=== PATIENT | male | born 1955 | race African-American/Black ===

== ENCOUNTER 2017-02-22 15:37 | Inpatient (IN) | payer OTHER ==
--- NOTE | ~2017-02-22 | DS ---
Discharge Summary [id number] [place]. [address] NAME: JORDAN LIN : 51 STATUS : DIS IN PAT#: [id number] AGE: 61 ADM/REG DATE : 02/22/17 MR#: [id number] REPORT SERV DATE: 02/27/17 DICTATED BY: CARLO CALLES DATE: 02/27/17 REPORT STATUS : Draft TRANSCRIBED BY: MODL DATE: 02/27/17 ADMISSION DATE: 02/22/2017 DISCHARGE DATE: 02/27/2017 DISCHARGE DIAGNOSES: 1. Anaplastic large T-cell lymphoma, as a new diagnosis after biopsy of right groin mass. 2. Leukocytosis, without any active evidence for infection. 3. Mild acute kidney injury on chronic kidney disease, present on admission, resolved. 4. Obesity. 5. Chronic obstructive pulmonary disease with mild exacerbation. CONSULTANTS: 1. Dr. Sims of Medical Oncology. 2. Dr. Drake of General Surgery. PROCEDURES: CT-guided biopsy of the right inguinal rickey mass that showed anaplastic large T cell lymphoma. HOSPITAL COURSE: This is a 61-year-old gentleman who was admitted to the hospital with a right groin abscess. For details, please refer to excellent H and P by Dr. Eliz Peters. In summary, the patient was admitted with an initial diagnosis of right groin abscess and was started on broad-spectrum antibiotics. However, further imaging showed that it was actually more of a mass than an abscess. The patient subsequently underwent a CT- guided needle biopsy of the mass which showed a large T-cell lymphoma. Thus the patient was seen and evaluated by Dr. Sims of Medical Oncology and the plan is to start chemotherapy as early as next week. The patient will be set up for outpatient PET scan and the patient will also have a port placement as an outpatient. The patient did have a persistent leukocytosis with borderline procalcitonin levels. The patient was maintained on broad-spectrum antibiotics. However, after no further evidence of sepsis or source of infection was identified, the antibiotics were discontinued and the patient remained stable. CT of the abdomen and pelvis was performed, which did not reveal any focal source of infection or any other obvious metastatic disease. Urinalysis was also negative for UTI. On the day of discharge, the patient is getting an echocardiogram since the patient will be started on chemotherapy next week. Results of the echocardiogram will be followed up by Dr. Sims. Otherwise, the patient was also treated for possible mild COPD exacerbation and he remained stable. DISPOSITION: Home. DISCHARGE MEDICATIONS: No changes. FOLLOWUP: 1. Please follow up with PCP in the next one to two weeks. 2. Please follow up with Dr. Sims next week as instructed. 3. Please follow up with General Surgery as instructed for outpatient port placement. Discharge Summary [address] [address] NAME: JORDAN LIN : 51 STATUS : DIS IN PAT#: [id number] AGE: 61 ADM/REG DATE : 02/22/17 MR#: [id number] REPORT SERV DATE: 02/27/17 DICTATED BY: CARLO CALLES DATE: 02/27/17 REPORT STATUS : Draft TRANSCRIBED BY: JAKI DATE: 02/27/17 A total of 40 minutes spent in coordinating this patient's discharge today. DICTATED BY: Carlo Calles MD [facility]/JAKI Carlo Calles MD / [id number] CC: MD RY Brown CONTRESIA
--- NOTE | ~2017-02-22 | CN ---
Consultation Report [facility] [address] [place]. [address] NAME: JORDAN LIN : 51 STATUS : ADM IN PAT#: [id number] AGE: 61 ADM/REG DATE : 02/22/17 MR#: [id number] REPORT SERV DATE: 02/24/17 DICTATED BY: JOJO DRAKE DATE: 02/22/17 REPORT STATUS : Draft TRANSCRIBED BY: MODL DATE: 02/22/17 CONSULT NOTE DATE OF CONSULTATION: 02/22/2017 ATTENDING SURGEON: Jojo Drake M.D. REASON FOR CONSULT: Right groin mass. HISTORY OF PRESENT ILLNESS: This is a 61-year-old male with a history of COPD and hypertension, who presents to the emergency department with one week of an enlarging right groin mass. The patient states that the mass began as a small lump in his groin approximately one week prior. It has been slowly growing in size as well as having increasing pain which is why he presented to the emergency room. Denies any preceding events, although he does note he has been somewhat constipated lately. Denies any fever, chills, nausea, vomiting, or diarrhea. Denies any dysuria or neutral urinating, although he does have some baseline difficulty starting and stopping his urination stream. Denies any change to his home oxygen requirements or new shortness of breath or chest pain. Denies any recent weight loss or night sweats. Denies any prior history of similar masses or any other lesions that he has noted on his body. Denies any history of trauma or manipulation of the right groin. PAST MEDICAL HISTORY: Hypertension, COPD. SURGICAL HISTORY: None. SOCIAL HISTORY: Prior smoker. Minimal alcohol use. Does endorse marijuana use. ALLERGIES: NO KNOWN DRUG ALLERGIES. HOME MEDICATIONS: Lisinopril, DuoNeb inhaler, cholecalciferol, Symbicort inhaler, and hydrochlorothiazide. FAMILY HISTORY: Coronary artery disease, diabetes, COPD, and ovarian cancer in his mother. REVIEW OF SYSTEMS: Pertinent positives and negatives as above per the HPI. The patient denies any history of diabetes or troubles with his sugar control. The patient has never had a colonoscopy. The patient denies any known history of chronic infections including hepatitis and HIV. Full 12 point systems were reviewed and otherwise no pertinent findings. PHYSICAL EXAMINATION: VITAL SIGNS: Temperature 98.1, blood pressure 115/65, heart rate 105, respirations 20, breathing 93% on 2 L by nasal cannula. GENERAL: This is an adult black male, in no acute distress. He is nontoxic appearing. He Consultation Report [address] [place]. [address] NAME: JORDAN LIN : 51 STATUS : ADM IN [facility]#: [id number] AGE: 61 ADM/REG DATE : 02/22/17 MR#: [id number] REPORT SERV DATE: 02/24/17 DICTATED BY: JOJO DRAKE DATE: 02/22/17 REPORT STATUS : Draft TRANSCRIBED BY: MODL DATE: 02/22/17 is alert and oriented x3. CARDIOVASCULAR: Regular rate and rhythm. Distant heart sounds. PULMONARY: Clear to auscultation bilaterally. ABDOMINAL: The abdomen is obese, soft, nondistended, nontender. EXTREMITIES: The patient moves all extremities with equal strength and mobility. Has no noted lesions on the distal lower extremities. With regard to his right groin, the patient has an approximately 4 x 3 cm area of induration at the right inguinal crease. It is tender. Has some slight erythema. No noted fluctuance or active drainage. Inguinal canal on exam does not appear to have any defects or hernias. No hernias or masses noted in the left groin. No other notable lymphadenopathy on exam including the axilla, bilateral neck, and bilateral clavicular areas. LABORATORIES: White count 16, hematocrit 45, platelets 284. Renal panel significant for creatinine of 1.51, glucose of 132. IMAGING: None. ASSESSMENT AND PLAN: This is a 61-year-old male with a history of chronic obstructive pulmonary disease and hypertension with right groin mass. 1. Differential includes cellulitis versus abscess versus lymphadenopathy versus vascular malformation. 2. The patient is currently stable, nontoxic, does have a leukocytosis. We will obtain formal ultrasound of bilateral groins. Pending results of this, the patient may need aspiration versus incision and drainage versus excision of this area. 3. Hospitalist plan is to admit for history of COPD, hypertension with ongoing fluid resuscitation. Recommend holding antibiotics until potential cultures obtained if possible. 4. We will follow along. Marked the external area of induration and erythema to track progress. DICTATED BY: MD KARINA Velásquez/MODL Jojo Drake M.D. / [id number] CC: Jia Koroma Contresia
--- NOTE | ~2017-02-22 | CN ---
Consultation Report [facility] [address] [place]. [address] NAME: JORDAN LIN : 51 STATUS : ADM IN PAT#: [id number] AGE: 61 ADM/REG DATE : 02/22/17 MR#: [id number] REPORT SERV DATE: 02/25/17 DICTATED BY: RAMU GALAVIZ III DATE: 02/25/17 REPORT STATUS : Draft TRANSCRIBED BY: MODTorey DATE: 02/25/17 CONSULTATION DATE OF CONSULTATION: 02/25/2017 REASON FOR CONSULTATION: Right inguinal mass. HISTORY OF PRESENT ILLNESS: Mr. Lin is a 61-year-old man, who presented to the hospital with around one week of pain in his right groin with associated mass. He states that this enlarged over the weekend, but it has been present for roughly one week. He says it is exquisitely tender to touch. He has not noted any recent night fevers or weight loss. He does have intermittent night sweats. He is otherwise fairly healthy with only asthma/COPD as his main medical problem. He also takes hypertension medications. SOCIAL HISTORY: Positive for a prior smoking which he stopped roughly one year ago. There is no alcohol or drug abuse. FAMILY HISTORY: Significant for mother, who of ovarian cancer in her 70s. HOME MEDICATIONS: His home med list was reviewed and per the home med list on the chart. REVIEW OF SYSTEMS: A comprehensive review of systems was performed and is negative unless noted in the HPI. PHYSICAL EXAMINATION: VITAL SIGNS: Blood pressure is 103/58, temperature is 97.8, and pulse is 91. GENERAL: He is well-developed, overweight male, in no acute distress. EYES: Pupils are round and reactive to light. Extraocular muscles are intact. There are anicteric sclerae. NECK: Supple with no masses or thyroid enlargement. No JVD. CARDIOVASCULAR: Regular rate and rhythm with no audible murmurs. EXTREMITIES: There is no lower extremity edema. LUNGS: Clear to auscultation bilaterally with normal respiratory effort. ABDOMEN: Soft, nondistended, and nontender with positive bowel sounds. No hepatosplenomegaly. SKIN: Warm and dry with good skin turgor. Normal color. PSYCH: He is alert, oriented, and comprehends our conversation with normal judgment and affect. LYMPHATIC: Exam is negative for any cervical, supraclavicular, infraclavicular, or axillary lymphadenopathy. There is a right inguinal mass noted with some surrounding induration. DIAGNOSTIC DATA: His CT imaging was reviewed, there is no other lymph nodes noted in his pelvis other than that in his right inguinal region. Consultation Report [place] [address] [address] [place]. [address] NAME: JORDAN LIN : 51 STATUS : ADM IN PAT#: [id number] AGE: 61 ADM/REG DATE : 02/22/17 MR#: [id number] REPORT SERV DATE: 02/25/17 DICTATED BY: RAMU GALAVIZ III DATE: 02/25/17 REPORT STATUS : Draft TRANSCRIBED BY: JAKI DATE: 02/25/17 LABORATORY DATA: His chemistry and CBC were reviewed. ASSESSMENT AND PLAN: Right inguinal mass, biopsy was performed yesterday, it is currently pending. We will obtain a CT scan of his chest and his abdomen. We will also check an LDH. I will follow while he is an inpatient and arrange followup upon discharge. [facility]MA/JAKI Ramu Galaviz III, M.D. / [id number] CC: Jia Koroma CONTRESIA
--- NOTE | ~2017-02-22 | HP ---
History And Physical [place] [address] [facility] [place]. [address] NAME: JORDAN LIN : 51 STATUS : REG ER PAT#: [id number] AGE: 61 ADM/REG DATE : 02/22/17 MR#: [id number] REPORT SERV DATE: 02/22/17 DICTATED BY: KALEN GUEVARA DATE: 02/22/17 REPORT STATUS : Draft TRANSCRIBED BY: MODL DATE: 02/22/17 DATE OF ADMISSION: 02/22/2017 The patient is a 61-year-old male, who presented to [facility] with a complaint of pain in his right groin approximately for one week duration. No fever. No rash. No headache. He said the pain was difficult to tolerate and it was swollen and warm to touch. So, he presented to [facility] for this reason. The patient also has COPD which is oxygen dependent, but he says that he sometimes has shortness of breath on exertion but right now, he denies any shortness of breath. He also has history of hypertension. He denies any history of heart attacks. No history of strokes. No history of diabetes. Kyree Cox, nurse practitioner did a bedside ultrasound. He tried to drain the swelling which looked like an abscess, but it was unsuccessful, so Surgery was called to evaluate this. Family history is known for hypertension and diabetes. No any surgery in the past. SOCIAL HISTORY: He quit smoking one year ago, used to smoke one pack per day. No excessive alcohol use. He uses marijuana. No other recreational drugs. He also has oxygen-dependent COPD as I dictated above. HOME MEDICATIONS: Include albuterol with ipratropium nebulized four times a day, Symbicort two puffs inhaled twice a day, vitamin D 4000 units daily, HCTZ 25 mg a day, and lisinopril 20 mg a day. The patient denies any use of nonsteroidal antiinflammatories. REVIEW OF SYSTEMS: All 14-point review of system done and negative except what is stated in the history of present illness. PHYSICAL EXAMINATION: GENERAL: Obese male, not in acute distress, resting quietly. VITAL SIGNS: Blood pressure 115/65, temperature 98.1, heart rate in 90-100s, respiratory rate 20, oxygen saturation 93% on 2 L nasal cannula. HEENT: Head is atraumatic, normocephalic. Conjunctivae clear. Pupils are equal and reactive to light and accommodation. Extraocular muscles are intact. NECK: Supple. Trachea is midline. No supraclavicular or cervical lymphadenopathy. LUNGS: Diminished breath sounds bilaterally with mild expiratory wheezing anteriorly and posteriorly. Normal respiratory effort. CARDIOVASCULAR: Regular rate and rhythm. Point of maximal impulse not displaced. ABDOMEN: Soft, obese, nontender, nondistended. Positive normoactive bowel sounds. There is a right groin swelling in two places and it is also warm to touch with mild erythema. The left groin looks normal. EXTREMITIES: No clubbing, cyanosis, or edema. Skin normal color and turgor. PSYCHIATRIC: Normal mood and affect. NEUROLOGIC: Awake, alert, and oriented in time, place, and person. Muscle strength is 5/5 History And Physical [address] [address] NAME: JORDAN LIN : 51 STATUS : REG ER PAT#: [id number] AGE: 61 ADM/REG DATE : 02/22/17 MR#: [id number] REPORT SERV DATE: 02/22/17 DICTATED BY: KALEN GUEVARA DATE: 02/22/17 REPORT STATUS : Draft TRANSCRIBED BY: JAKI DATE: 02/22/17 bilaterally on upper and lower extremities. LABORATORY RESULTS: Sodium 136, potassium 4.1, chloride 95, carbon dioxide 43, BUN 19, creatinine 1.51, blood sugar 132, calcium 9.4. According to our records in the computer in 2013, his creatinine was 0.8. White count 75598, hemoglobin 14.1, hematocrit 45.5, platelet count 284. There are 73% segments. ASSESSMENT AND PLAN: This is a 61-year-old male with a past medical history of oxygen- dependent COPD, history of hypertension, presented with, 1. Right groin abscess with pain. 2. Leukocytosis secondary to right groin abscess. 3. Mild acute kidney injury on chronic kidney disease. 4. Obesity. 5. History of chronic obstructive pulmonary disease oxygen dependent, with possible mild exacerbation. Plan for his right groin abscess, blood cultures will be done as well as ultrasound of the groin will be ordered by me. Antibiotics Zosyn and vancomycin started. Surgeon was consulted, Dr. Drake and his resident at the bed side already saw the patient. They are going to discuss with Dr. Drake on further imaging and also on further plan of treatment. Mild acute kidney injury on chronic kidney disease could be just dehydration. We will hold his HCTZ and lisinopril. Gentle IV fluid hydration will be started and we will recheck his creatinine tomorrow. History of oxygen-dependent COPD with mild wheezing. We will give him nebulized breathing treatment with albuterol, ipratropium, as well as we will give him his inhaler Symbicort and we will check his chest x-ray. We will check his EKG and we will check his heart enzymes. The patient does not have any chest pain. We just checked the baseline EKG as well. Reasonable pain control will be given and ultrasound on the groin my partner will check tomorrow. Everything was discussed with the patient, with his family as well as with the surgery resident. MG/JAKI Kalen Guevara M.D. / [id number] CC: History And Physical [address] [address] NAME: JORDAN LIN : 51 STATUS : REG ER PAT#: [id number] AGE: 61 ADM/REG DATE : 02/22/17 MR#: [id number] REPORT SERV DATE: 02/22/17 DICTATED BY: KALEN GUEVARA DATE: 02/22/17 REPORT STATUS : Draft TRANSCRIBED BY: MODL DATE: 02/22/17 Jaret Hawkins
[2017-02-22 16:27] LABS: CALCIUM, SERUM 9.4 MG/DL (8.5-10.4); CHLORIDE, SERUM 95 MMOL/L (96-112); POTASSIUM, SERUM 4.1 MMOL/L (3.5-5.3); SODIUM, SERUM 136 MMOL/L (135-148)
[2017-02-22 16:28] LABS: BUN (BLOOD UREA NITROGEN) 19 MG/DL (6-23); CO2 (CARBON DIOXIDE) 43 MMOL/L (24-34); CREATININE 1.51 MG/DL (0.70-1.30); GFR AFRICAN AMERICAN 56 ML/MIN (>=60); GFR NON AFRICAN AMERICAN 48 ML/MIN (>=60); GLUCOSE, SERUM 132 MG/DL (60-99)
[2017-02-22 16:58] LABS: BASOPHILS 0.1 %; BASOPHILS ABSOLUTE 0.02 10/3/uL (0.0-0.16); EOSINOPHILS ABSOLUTE 0.16 10/3/uL (0.0-0.53); HEMOGLOBIN 14.1 g/dL (13.6-17.8); IMMATURE GRANULOCYTES 0.4 %; IMMATURE GRANULOCYTES ABSOLUTE 0.06 10/3/uL (0.0-0.11); LYMPHOCYTES 22.3 %; LYMPHOCYTES ABSOLUTE 3.57 10/3/uL (0.67-4.30); MEAN CORPUSCULAR HEMOGLOB 26.7 pg (26.0-34.0); MEAN PLATELET VOLUME 10.2 fL (9.2-13.0); MONOCYTES 11.5 %; MONOCYTES ABSOLUTE 1.84 10/3/uL (0.21-1.20); NEUTROPHILS 64.7 %; NEUTROPHILS ABSOLUTE 10.33 10/3/uL (2.02-8.40); RBC DISTRIBUTION WIDTH 17.8 % (12.0-16.0); RED CELL COUNT 5.29 10/6/uL (4.7-6.1)
[2017-02-22 16:59] LABS: ER CBC TAT 0 Hrs 50 Mins; HEMATOCRIT 45.5 % (40.0-51.0); PLATELET COUNT 284 10/3/uL (150-400)
[2017-02-22 17:29] LABS: SEGMENTED NEUTROPHIL (0) 73 %; TOTAL NUCLEATED CELLS 100
[2017-02-22 17:30] LABS: EOSINOPHILS 1 %; EOSINOPHILS ABSOLUTE (CALC) 0.16 10/3/uL (0.0-0.53); LYMPHOCYTES 10 %; MONOCYTES 16 %; MONOCYTES ABSOLUTE (CALC) 2.56 10/3/uL (0.21-1.20); NEUTROPHILS ABSOLUTE (CALC) 11.68 10/3/uL (2.02-8.40)
[2017-02-22 17:32] LABS: ANISOCYTOSIS 1+ (5-10/OIF) (0-5/OIF); ATYPICAL LYMPH FEW (3-5%) (0-5%)
[2017-02-22 17:33] LABS: POLYCHROMASIA 1+ (2-5/OIF) (0-1/OIF); TOXIC GRANULATION SLT
[2017-02-22 17:58] LABS: MANUAL DIFF NO %
[2017-02-22] MEDS ORDERED: SYMBICORT 160/41 INH INH (18:12)
[2017-02-22] MEDS ORDERED: VITAMIN D31000 UNIT PO (18:12)
[2017-02-22] MEDS ORDERED: PRIN20 PO (18:12)
[2017-02-22] MEDS ORDERED: DUONEB INH (18:12)
[2017-02-22] MEDS ORDERED: HYDROCHLOROT25 MG PO (18:13)
[2017-02-22 22:01] LABS: B NATRIURETIC PEPTIDE (BNP) 31.1 PG/ML (< 100.0)
[2017-02-22 22:06] LABS: ULTRASENSITIVE TSH 0.582 MCIU/ML (0.358-3.740)
[2017-02-22 22:25] LABS: PROCALCITONIN 0.5 ng/mL (<0.5)
[2017-02-23 07:05] LABS: HEMATOCRIT 41.5 % (40.0-51.0); HEMOGLOBIN 13.1 g/dL (13.6-17.8); MEAN CORPUS HGB CONC 31.6 g/dL (32.0-36.0); MEAN CORPUSCULAR HEMOGLOB 26.5 pg (26.0-34.0); MEAN CORPUSCULAR VOLUME 83.8 fL (80-100); MEAN PLATELET VOLUME 9.9 fL (9.2-13.0); PLATELET COUNT 272 10/3/uL (150-400); RBC DISTRIBUTION WIDTH 17.6 % (12.0-16.0); RED CELL COUNT 4.95 10/6/uL (4.7-6.1); WHITE BLOOD CELLS 15.4 10/3/uL (4.5-10.5)
[2017-02-23 07:08] LABS: BUN (BLOOD UREA NITROGEN) 20 MG/DL (6-23); CALCIUM, SERUM 8.7 MG/DL (8.5-10.4); CHLORIDE, SERUM 100 MMOL/L (96-112); CREATININE 1.07 MG/DL (0.70-1.30); GFR AFRICAN AMERICAN 85 ML/MIN (>=60); GFR NON AFRICAN AMERICAN 73 ML/MIN (>=60); GLUCOSE, SERUM 119 MG/DL (60-99); MANUAL DIFF YES %; POTASSIUM, SERUM 4.5 MMOL/L (3.5-5.3); SODIUM, SERUM 142 MMOL/L (135-148); TROPONIN I <0.02 NG/ML (<0.05)
[2017-02-23 07:09] LABS: CO2 (CARBON DIOXIDE) 37 MMOL/L (24-34)
[2017-02-23 07:14] LABS: GLYCOHEMOGLOBIN (HbA1c) 5.9 % (4.7-6.1)
[2017-02-23 07:42] LABS: ANISOCYTOSIS 1+ (5-10/OIF) (0-5/OIF); BAND NEUTROPHILS 4 %; EOSINOPHILS 3 %; EOSINOPHILS ABSOLUTE (CALC) 0.46 10/3/uL (0.0-0.53); LYMPHOCYTES 29 %; LYMPHOCYTES ABSOLUTE (CALC) 4.47 10/3/uL (0.67-4.30); MONOCYTES 10 %; MONOCYTES ABSOLUTE (CALC) 1.54 10/3/uL (0.21-1.20); NEUTROPHILS ABSOLUTE (CALC) 8.93 10/3/uL (2.02-8.40); SEGMENTED NEUTROPHIL (0) 54 %; TOTAL NUCLEATED CELLS 100
[2017-02-23 07:43] LABS: HYPOCHROMIA 1+ (3-10/OIF) (0-2/OIF); PLATELET ESTIMATE ADQ (ADEQUATE); POLYCHROMASIA 1+ (2-5/OIF) (0-1/OIF); TARGET CELLS OCC (1-2/OIF) (0-1/OIF); TEARDROP SHAPED RBCS OCC (0-2/OIF)
[2017-02-23 07:44] LABS: HELMET CELLS OCC (0-2/OIF)
[2017-02-23 07:47] LABS: TOXIC GRANULATION SLT
[2017-02-24 05:37] LABS: HEMATOCRIT 41.6 % (40.0-51.0); HEMOGLOBIN 12.9 g/dL (13.6-17.8); MEAN CORPUSCULAR HEMOGLOB 26.3 pg (26.0-34.0); MEAN CORPUSCULAR VOLUME 84.9 fL (80-100); MEAN PLATELET VOLUME 9.8 fL (9.2-13.0); PLATELET COUNT 300 10/3/uL (150-400); RBC DISTRIBUTION WIDTH 17.6 % (12.0-16.0); WHITE BLOOD CELLS 14.5 10/3/uL (4.5-10.5)
[2017-02-24 05:40] LABS: MANUAL DIFF YES %
[2017-02-24 05:52] LABS: CALCIUM, SERUM 8.9 MG/DL (8.5-10.4); CHLORIDE, SERUM 101 MMOL/L (96-112); CO2 (CARBON DIOXIDE) 36 MMOL/L (24-34); CREATININE 0.94 MG/DL (0.70-1.30); GFR AFRICAN AMERICAN 100 ML/MIN (>=60); GFR NON AFRICAN AMERICAN 86 ML/MIN (>=60); GLUCOSE, SERUM 104 MG/DL (60-99); POTASSIUM, SERUM 4.1 MMOL/L (3.5-5.3); SODIUM, SERUM 138 MMOL/L (135-148)
[2017-02-24 05:53] LABS: BUN (BLOOD UREA NITROGEN) 15 MG/DL (6-23)
[2017-02-24 06:19] LABS: ANISOCYTOSIS 1+ (5-10/OIF) (0-5/OIF); BAND NEUTROPHILS 6 %; HYPOCHROMIA 1+ (3-10/OIF) (0-2/OIF); LYMPHOCYTES 12 %; LYMPHOCYTES ABSOLUTE (CALC) 1.74 10/3/uL (0.67-4.30); MONOCYTES 13 %; MONOCYTES ABSOLUTE (CALC) 1.89 10/3/uL (0.21-1.20); NEUTROPHILS ABSOLUTE (CALC) 10.88 10/3/uL (2.02-8.40); PLATELET ESTIMATE ADQ (ADEQUATE); POLYCHROMASIA 1+ (2-5/OIF) (0-1/OIF); SEGMENTED NEUTROPHIL (0) 69 %; TARGET CELLS FEW (3-10/OIF) (0-1/OIF); TOTAL NUCLEATED CELLS 100
[2017-02-25 05:57] LABS: A/G RATIO 0.7 (0.7-1.9); ALBUMIN 2.6 G/DL (3.5-5.0); ALKALINE PHOSPHATASE 49 U/L (45-117); BUN (BLOOD UREA NITROGEN) 14 MG/DL (6-23); CALCIUM, SERUM 8.4 MG/DL (8.5-10.4); CHLORIDE, SERUM 100 MMOL/L (96-112); CO2 (CARBON DIOXIDE) 36 MMOL/L (24-34); CREATININE 0.96 MG/DL (0.70-1.30); GFR AFRICAN AMERICAN 97 ML/MIN (>=60); GFR NON AFRICAN AMERICAN 84 ML/MIN (>=60); GLOBULIN 3.9 G/DL (2.5-4.1); GLUCOSE, SERUM 101 MG/DL (60-99); POTASSIUM, SERUM 4.1 MMOL/L (3.5-5.3); SGOT(AST) 11 U/L (5-40); SGPT(ALT) 13 U/L (5-65); SODIUM, SERUM 140 MMOL/L (135-148); TOTAL BILIRUBIN 0.6 MG/DL (0-1.2); TOTAL PROTEIN 6.5 G/DL (6.0-8.5)
[2017-02-25 06:25] LABS: HEMATOCRIT 40.2 % (40.0-51.0); HEMOGLOBIN 12.6 g/dL (13.6-17.8); MEAN CORPUS HGB CONC 31.3 g/dL (32.0-36.0); MEAN CORPUSCULAR HEMOGLOB 26.5 pg (26.0-34.0); MEAN CORPUSCULAR VOLUME 84.5 fL (80-100); PLATELET COUNT 291 10/3/uL (150-400); RBC DISTRIBUTION WIDTH 17.5 % (12.0-16.0); RED CELL COUNT 4.76 10/6/uL (4.7-6.1); WHITE BLOOD CELLS 14.8 10/3/uL (4.5-10.5)
[2017-02-25 06:26] LABS: MANUAL DIFF YES %
[2017-02-25 06:47] LABS: HYPOCHROMIA 1+ (3-10/OIF) (0-2/OIF); LYMPHOCYTES 28 %; LYMPHOCYTES ABSOLUTE (CALC) 4.14 10/3/uL (0.67-4.30); MONOCYTES 11 %; MONOCYTES ABSOLUTE (CALC) 1.63 10/3/uL (0.21-1.20); NEUTROPHILS ABSOLUTE (CALC) 9.03 10/3/uL (2.02-8.40); SEGMENTED NEUTROPHIL (0) 61 %; TOTAL NUCLEATED CELLS 100
[2017-02-25 06:48] LABS: TARGET CELLS OCC (1-2/OIF) (0-1/OIF)
[2017-02-25 07:10] LABS: PROCALCITONIN 0.57 ng/mL (<0.5)
[2017-02-26 05:14] LABS: HEMATOCRIT 40.4 % (40.0-51.0); HEMOGLOBIN 12.6 g/dL (13.6-17.8); MEAN CORPUS HGB CONC 31.2 g/dL (32.0-36.0); MEAN CORPUSCULAR HEMOGLOB 26.7 pg (26.0-34.0); MEAN CORPUSCULAR VOLUME 85.6 fL (80-100); MEAN PLATELET VOLUME 9.9 fL (9.2-13.0); PLATELET COUNT 285 10/3/uL (150-400); RBC DISTRIBUTION WIDTH 17.4 % (12.0-16.0); RED CELL COUNT 4.72 10/6/uL (4.7-6.1); WHITE BLOOD CELLS 15.8 10/3/uL (4.5-10.5)
[2017-02-26 05:18] LABS: MANUAL DIFF YES %
[2017-02-26 05:23] LABS: BUN (BLOOD UREA NITROGEN) 11 MG/DL (6-23); CALCIUM, SERUM 8.5 MG/DL (8.5-10.4); CHLORIDE, SERUM 100 MMOL/L (96-112); CO2 (CARBON DIOXIDE) 35 MMOL/L (24-34); CREATININE 0.91 MG/DL (0.70-1.30); GFR AFRICAN AMERICAN 104 ML/MIN (>=60); GFR NON AFRICAN AMERICAN 89 ML/MIN (>=60); GLUCOSE, SERUM 104 MG/DL (60-99); POTASSIUM, SERUM 4.3 MMOL/L (3.5-5.3); SODIUM, SERUM 138 MMOL/L (135-148)
[2017-02-26 05:43] LABS: ANISOCYTOSIS 1+ (5-10/OIF) (0-5/OIF); BAND NEUTROPHILS 1 %; EOSINOPHILS 8 %; EOSINOPHILS ABSOLUTE (CALC) 1.26 10/3/uL (0.0-0.53); LYMPHOCYTES 19 %; MONOCYTES 6 %; MONOCYTES ABSOLUTE (CALC) 0.95 10/3/uL (0.21-1.20); NEUTROPHILS ABSOLUTE (CALC) 10.59 10/3/uL (2.02-8.40); PLATELET ESTIMATE ADQ (ADEQUATE); SEGMENTED NEUTROPHIL (0) 66 %; TOTAL NUCLEATED CELLS 100
[2017-02-26 18:48] LABS: ASCORBIC ACID (UR NOT ORDER) NEG (NEG); BILIRUBIN, URINE NEGATIVE (NEG); KETONE, URINE NEGATIVE (NEG); LEUKOCYTE ESTERASE(NOT OR NEG (NEG); WBC (NOT ORDERED) (RFLEX) 1 (0-5)
[2017-02-27 03:24] LABS: HEMATOCRIT 41.2 % (40.0-51.0); HEMOGLOBIN 12.9 g/dL (13.6-17.8); MEAN CORPUS HGB CONC 31.3 g/dL (32.0-36.0); MEAN CORPUSCULAR HEMOGLOB 26.7 pg (26.0-34.0); MEAN CORPUSCULAR VOLUME 85.1 fL (80-100); MEAN PLATELET VOLUME 9.8 fL (9.2-13.0); PLATELET COUNT 300 10/3/uL (150-400); RBC DISTRIBUTION WIDTH 17.1 % (12.0-16.0); RED CELL COUNT 4.84 10/6/uL (4.7-6.1); WHITE BLOOD CELLS 16.5 10/3/uL (4.5-10.5)
[2017-02-27 03:29] LABS: MANUAL DIFF YES %
[2017-02-27 03:37] LABS: BUN (BLOOD UREA NITROGEN) 12 MG/DL (6-23); CALCIUM, SERUM 8.7 MG/DL (8.5-10.4); CHLORIDE, SERUM 99 MMOL/L (96-112); CO2 (CARBON DIOXIDE) 38 MMOL/L (24-34); CREATININE 1.11 MG/DL (0.70-1.30); GFR AFRICAN AMERICAN 81 ML/MIN (>=60); GFR NON AFRICAN AMERICAN 70 ML/MIN (>=60); GLUCOSE, SERUM 106 MG/DL (60-99); POTASSIUM, SERUM 4.1 MMOL/L (3.5-5.3); SODIUM, SERUM 139 MMOL/L (135-148)
[2017-02-27 03:54] LABS: ANISOCYTOSIS 1+ (5-10/OIF) (0-5/OIF); BAND NEUTROPHILS 1 %; BASOPHILS 1 %; BASOPHILS ABSOLUTE (CALC) 0.17 10/3/uL (0.0-0.16); EOSINOPHILS 1 %; EOSINOPHILS ABSOLUTE (CALC) 0.17 10/3/uL (0.0-0.53); GIANT PLATELET RARE; LYMPHOCYTES 24 %; LYMPHOCYTES ABSOLUTE (CALC) 3.96 10/3/uL (0.67-4.30); MONOCYTES 15 %; MONOCYTES ABSOLUTE (CALC) 2.48 10/3/uL (0.21-1.20); NEUTROPHILS ABSOLUTE (CALC) 9.74 10/3/uL (2.02-8.40); PLATELET ESTIMATE ADQ (ADEQUATE); SEGMENTED NEUTROPHIL (0) 58 %; TOTAL NUCLEATED CELLS 100
[2017-02-27 03:55] LABS: TOXIC GRANULATION SLT; VACUOLATED NEUTROPHILES OCC
[2017-02-27] MEDS ORDERED: NORCO1 TA1 PO (15:08)
== END 2017-02-27 15:43 | disposition home or self-care (01) | DRG 824 ==
LOC: ER 15:37 → 6NO 19:28
PROVIDERS: Hospitalist; Internal Medicine; Nurse Practitioner
PROC: 07BH3ZX Excision of Right Inguinal Lymphatic, Percutaneous Approach, Diagnostic (ICD-10-PCS; principal; 2017-02-24)
DX: C91.50 Adult T-cell lymphoma/leukemia (HTLV-1-associated) not having achieved remission (principal); N17.9 Acute kidney failure, unspecified; J96.11 Chronic respiratory failure with hypoxia; J44.1 Chronic obstructive pulmonary disease with (acute) exacerbation; Z99.81 Dependence on supplemental oxygen; N18.9 Chronic kidney disease, unspecified; I12.9 Hypertensive chronic kidney disease with stage 1 through stage 4 chronic kidney disease, or unspecified chronic kidney disease; E66.9 Obesity, unspecified; Z82.49 Family history of ischemic heart disease and other diseases of the circulatory system; Z87.891 Personal history of nicotine dependence; Z68.31 Body mass index [BMI] 31.0-31.9, adult
CPT/HCPCS: 38505; 71010; 71260; 72193; 74160; 76882; 77012; 80048; 80053; 80202; 81001; 83036; 83615; 83735; 83880; 84145; 84443; 84484; 85025; 86140; 87040; 88305; 88333; 88341; 88342; 93005; 93970; 94640; 96365; 99284; A9270-GY; C8929; J0295; J2250; J2543; J3010; J3370; Q9957; Q9967

== ENCOUNTER 2017-03-05 08:36 | Day surgery (SDC) | payer OTHER ==
--- NOTE | ~2017-03-05 | OP ---
Record Of Operation [facility] [address] [place]. [address] NAME: JORDAN LIN : 51 STATUS : REG [facility] PAT#: [id number] AGE: 61 ADM/REG DATE : 03/05/17 MR#: [id number] REPORT SERV DATE: 03/05/17 DICTATED BY: JOJO DRAKE DATE: 03/05/17 REPORT STATUS : Draft TRANSCRIBED BY: MODL DATE: 03/05/17 DATE OF PROCEDURE: 03/05/2017 PREPROCEDURE DIAGNOSIS: Thrombosclerosis and lymphoma. POSTPROCEDURE DIAGNOSIS: As above. PROCEDURE: Right IJ Erutlu-B-Fijm placement. DEPORTATION OFFICER: Racquel. DESCRIPTION OF PROCEDURE: The patient was taken to the operating room, induced under MAC anesthetic in the supine position, prepped and draped in the usual sterile fashion. Local anesthetic was injected just above the right clavicle. Ultrasound was used to identify the right and left internal jugular veins, which were larger, anterior and lateral compressible, compared to the pulsatile carotids. The right side was chosen and a needlestick was performed with the finder needle. It aspirated venous blood. The syringe was removed and a wire was placed via Seldinger technique. Initially, there was some difficulty with this. It was getting hung up in the neck so the new stick was placed again under ultrasound guidance. The wire threaded easily this time into the superior vena cava. The needle was removed, pinned to the drapes using a rubber-shod. Local anesthetic was injected in a 2 x 2 pocket two finger breaths below the clavicle. A 2 cm incision was made and the port pocket was created by elevating the adipose tissue off the deltopectoral fascia. The port was tacked into place on either side with a 2-0 Prolene, then local anesthetic from the port pocket site to the neck incision was injected subcutaneously. Stab incision was made at the neck at the level of the wire and then the tunneler, which was attached to already flushed tubing was run from the port pocket site out the neck incision without difficulty. The tubing was cut on an angle, and then the sheath plus obturator was placed over the wire. There was some difficulty with this because under MAC anesthetic, the patient kept swallowing and his muscles kept pushing the obturator away. When he was deepened, the obturator went easily and this was viewed on fluoro to make sure that there was no blind passage. Once this was confirmed, then the obturator and wire was removed. The tubing was placed to 25 cm where it aspirated and flushed easily. The sheath was cracked holding the tubing in place. The sheath was removed. Again, the tubing aspirated and flushed easily. It was held into place. The excess brought through the tunnel site, clipped with a rubber- shod, cut to size, dilated the tip and attached to the port, where it was locked into place. The port aspirated and flushed easily. A final x-ray was taken to confirm the tip in the superior vena cava. At this point, the two stay sutures were tied on either side. The port pocket site was closed with interrupted 3-0 Vicryl suture followed by the neck incision as well. Four Monocryl was used to close the skin and followed by benzoin, Steri-Strips, Telfa, and Tegaderm at the both sites. A chest x-ray will be obtained in recovery. At this point, Dr. Hennessy came to do the bone marrow biopsy and Dr. Plaza left the room. /JOSUEL Record Of Operation [address] [address] NAME: JORDAN LIN : 51 STATUS : REG [facility] PAT#: [id number] AGE: 61 ADM/REG DATE : 03/05/17 MR#: [id number] REPORT SERV DATE: 03/05/17 DICTATED BY: JOJO DRAKE DATE: 03/05/17 REPORT STATUS : Draft TRANSCRIBED BY: JAKI DATE: 03/05/17 Jojo Drake M.D. / [id number] CC: Jia Lyle III, M.D.
[~2017-03-05 08:36] MED LIST: DUONEB INH; HYDROCHLOROT25 MG PO; NORCO1 TA1 PO; PRIN20 PO; SYMBICORT 160/41 INH INH; VITAMIN D31000 UNIT PO
[2017-03-05 13:46] LABS: HEMATOCRIT 41.1 % (40.0-51.0); HEMOGLOBIN 12.4 g/dL (13.6-17.8); MANUAL DIFF YES %; MEAN CORPUS HGB CONC 30.2 g/dL (32.0-36.0); MEAN CORPUSCULAR HEMOGLOB 26.1 pg (26.0-34.0); MEAN CORPUSCULAR VOLUME 86.3 fL (80-100); MEAN PLATELET VOLUME 9.9 fL (9.2-13.0); PLATELET COUNT 437 10/3/uL (150-400); RBC DISTRIBUTION WIDTH 17.2 % (12.0-16.0); RED CELL COUNT 4.76 10/6/uL (4.7-6.1); RETICULOCYTE COUNT 2.4 % (0.5-2.5); RETICULOCYTE COUNT ABSOLUTE 114.7 10/3/uL (20.2-119.8); WHITE BLOOD CELLS 16.3 10/3/uL (4.5-10.5)
[2017-03-05 14:04] LABS: ANISOCYTOSIS 1+ (5-10/OIF) (0-5/OIF); LYMPHOCYTES 22 %; LYMPHOCYTES ABSOLUTE (CALC) 3.59 10/3/uL (0.67-4.30); MONOCYTES 14 %; MONOCYTES ABSOLUTE (CALC) 2.28 10/3/uL (0.21-1.20); NEUTROPHILS ABSOLUTE (CALC) 10.43 10/3/uL (2.02-8.40); PLATELET ESTIMATE SLT INC (ADEQUATE); SEGMENTED NEUTROPHIL (0) 64 %; TOTAL NUCLEATED CELLS 100
== END 2017-03-05 15:47 | disposition home or self-care (01) ==
LOC: SDC 08:36
PROVIDERS: Pathology Anatomic Pathology & Clinical Pathology; Surgery
PROC: 05HM33Z Insertion of Infusion Device into Right Internal Jugular Vein, Percutaneous Approach (ICD-10-PCS; principal; 2017-03-05 10:30)
PROC: 07DR3ZX Extraction of Iliac Bone Marrow, Percutaneous Approach, Diagnostic (ICD-10-PCS; 2017-03-05 10:30)
DX: C85.90 Non-Hodgkin lymphoma, unspecified, unspecified site (principal); I82.90 Acute embolism and thrombosis of unspecified vein; I10 Essential (primary) hypertension; E78.5 Hyperlipidemia, unspecified; E78.00 Pure hypercholesterolemia, unspecified; J44.9 Chronic obstructive pulmonary disease, unspecified; G51.0 Bell's palsy; F41.9 Anxiety disorder, unspecified; F32.9 Major depressive disorder, single episode, unspecified; F12.90 Cannabis use, unspecified, uncomplicated; Z87.891 Personal history of nicotine dependence; Z79.899 Other long term (current) drug therapy
CPT/HCPCS: 71010; 76000; 77001; 85025; 85045; 88305; 88311; 88313; 88341; 88342; C1788; J0690; J2250; J2370; J3010